=== PATIENT | female | born 1995 | race African-American/Black ===

== ENCOUNTER 2022-04-18 15:32 | Emergency (ER) | payer OTHER ==
[~2022-04-18] VITALS: Ht 167.6 cm; Wt 109.0 kg
[~2022-04-18 15:32] MED LIST: FERR325T6 MT; IBUP-2030 MT; MULT-622 MT
[2022-04-18 15:47] VITALS: BP 132/76
[2022-04-18] MEDS ORDERED: ACETAMINOPHEN 325MG TABLET PO ONE (18:45)
[2022-04-18] MEDS ORDERED: ONDANSETRON 4MG ODT PO ONE (18:45)
[2022-04-18 19:02] LABS: BASOPHILS % 0.8 % (0.0-2.0); HEMATOCRIT. 41.3 % (36.0-48.0); HEMOGLOBIN. 13.6 g/dL (12.0-16.0); LYMPHOCYTES % 29.1 % (20.0-50.0); MEAN CORPUSCULAR HEMOGLOBIN 28.2 pg (28.0-32.0); MEAN CORPUSCULAR VOLUME 85.8 fL (81.0-99.0); MEAN PLATELET VOLUME 8.6 fl (7.4-10.4); MONOCYTES % 5.7 % (2.0-8.0); NEUTROPHILS % 63.4 % (40.0-76.0); PLATELET 283 x1000/uL (130-400); RED BLOOD CELL COUNT 4.82 mill/uL (4.2-5.4); RED CELL DISTRIBUTION WIDTH 13.3 % (11.6-14.6)
[2022-04-18 19:06] LABS: HCG SCREEN NEGATIVE
[2022-04-18 19:08] LABS: CHLORIDE 109 mEq/L (98-107)
[2022-04-18] MEDS ORDERED: IBUP-2028 MT (21:59)
== END 2022-04-18 22:14 | disposition home or self-care (01) ==
LOC: ER 15:32
DX: R19.7 Diarrhea, unspecified (principal); R10.9 Unspecified abdominal pain; K76.0 Fatty (change of) liver, not elsewhere classified
CPT/HCPCS: 36415; 74176; 76705; 80053; 83690; 84703; 85025; 99285; Q0162

== ENCOUNTER 2023-06-29 13:45 | Emergency (ER) | payer MEDICAID, OTHER ==
[~2023-06-29] VITALS: Ht 167.6 cm; Wt 90.0 kg
[~2023-06-29 13:45] MED LIST changes: +IBUP-2028 MT
[2023-06-29 13:49] VITALS: BP 145/80; PULSE 105; RESP 16; TEMP 98.2; O2SAT 99
[2023-06-29] MEDS ORDERED: ACETAMINOPHEN 325MG TABLET PO ONE (14:00)
[2023-06-29] MEDS ORDERED: DEXAMETHASONE 10 MG/ML VIAL IM ONE (14:00)
[2023-06-29] MEDS ORDERED: MED4 MT (16:13)
[2023-06-29] MEDS ORDERED: AMOX-431 MT (16:14)
[2023-06-29] MEDS ORDERED: TOPUD MT (16:14)
[2023-06-29] MEDS ORDERED: KETOROLAC 60MG/2ML VIAL IM ONE (16:30)
== END 2023-06-29 17:56 | disposition home or self-care (01) ==
LOC: ER 14:10
DX: B34.9 Viral infection, unspecified (principal); R05.9 Cough, unspecified
CPT/HCPCS: 99283